=== PATIENT | female | born 1985 | race American Indian/Alaskan Native ===

== ENCOUNTER 2023-12-24 14:53 | Emergency (ER) | payer OTHER ==
[~2023-12-24] VITALS: Ht 165.1 cm; Wt 102.7 kg
[2023-12-24] MEDS ORDERED: CEFTRIAXONE/SODIUM CHLORIDE 2 GM/100 ML PIGGYBACK IV ONE (15:15)
[2023-12-24] MEDS ORDERED: SODIUM CHLORIDE 0.9% 1,000 ML IV ONE ×2 (15:15→15:45)
[2023-12-24 15:22] LABS: BASOPHILS 0.8 % (0-2); EOSINOPHILS 0.2 % (0-6); HEMATOCRIT 31.6 % (35.0-50.0); HEMOGLOBIN 10.1 g/dL (12.0-18.0); MCH 26.2 (27-36); MCHC 31.9 g/dl (30-36); MONOCYTES 2.1 % (0-12); NEUTROPHILS 90.9 % (39-80); PLATELET COUNT 399 K/uL (140-440); RBC 3.85 M/ul (4.3-5.7); RDW 15.9 (10.5-15.0)
[2023-12-24 15:22] LABS: BILIRUBIN, URINE POSITIVE (negative); BLOOD/HGB, URINE NEGATIVE (Negative); KETONE, URINE TRACE (Negative); LEUK ESTERASE, URINE NEGATIVE (negative); NITRITE, URINE NEGATIVE (negative)
[2023-12-24 15:28] LABS: CASTS, URINE NONE SEEN \\lpf; CRYSTALS, URINE NONE SEEN (0-1+); EPITHELIAL CELLS, URINE SQUAMOUS 2+ /lpf (0-1+)
[2023-12-24 15:29] LABS: BACTERIA, URINE 1+ /hpf (negative); COLLECTION TYPE, URINE CLEAN CATCH; RED BLOOD CELLS, URINE 0-1 /hpf (0-5); REFLEX CULTURE, URINE No (No)
[2023-12-24] MEDS ORDERED: AMOX TR-K CLV1 EAC1 PO (15:32)
[2023-12-24] MEDS ORDERED: DOXYCYCLINE HY100 MG PO (15:32)
[2023-12-24] MEDS ORDERED: BIKTARVY 50-201 EACH PO (15:35)
[2023-12-24 15:38] LABS: ALBUMIN 2.1 g/dL (3.4-5.0); ALBUMIN/GLOBULIN RATIO 0.43 (1.1-2.4); BILIRUBIN, TOTAL 0.5 ng/dL (0.2-1.0); BUN/CREATININE RATIO 15.15 (6.0-28.6); CALCIUM 9.5 mg/dL (8.5-10.1); CREATININE, SERUM 0.99 mg/dL (0.55-1.02)
[2023-12-24 15:42] LABS: LACTIC ACID, BLOOD 4.4 mmol/L (0.4-2.0)
[2023-12-24 15:55] LABS: INFLUENZA B NAA NEGATIVE (NEGATIVE); RESPIRATORY SYNCYTIAL VIR NAA POSITIVE (NEGATIVE)
--- OUTSIDE RECORDS SUMMARY | 2023-12-24 16:03 | XMS ---
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 - 2 Visits in 30 Days CARE PROVIDERS -, [facility] Dentist: Estimating Manager [facility] PHONE: [phone] - [place]- Dentist: Estimating Manager [facility] PHONE: [phone] [facility] ([facility]) PHONE: [phone] JAY PEREZ Physician Information Systems Coordinator Current PHONE: [phone] [place] has no Care Guidelines for this patient. [place] VISIT COUNT (12 MO.) 1 [facility] TOTAL 2 NOTE: Visits indicate total known visits. ED/UCC VISIT TRACKING (12 MO.) 12/24/2023 14:53 ENRIQUE Humphrey [place] TYPE: Emergency COMPLAINT: - FEVER 12/09/2023 19:57 [facility] DIAGNOSES: - Pleurisy - Viral infection, unspecified - Shortness of Breath - SOB INPATIENT VISIT TRACKING (12 MO.) No inpatient visits to display in this time frame [email or web address]
[2023-12-24] MEDS ORDERED: predniSONE 20 MG TAB PO ONE ×2 (16:45→17:30)
[2023-12-24 16:53] LABS: LACTIC ACID, BLOOD 2.5 mmol/L (0.4-2.0)
[2023-12-24 20:30] VITALS: BP 114/64
== END 2023-12-24 20:30 | disposition short-term general hospital (02) ==
LOC: ED 14:53
PROVIDERS: Emergency Medicine
DX: J18.9 Pneumonia, unspecified organism (principal); A41.9 Sepsis, unspecified organism; B20 Human immunodeficiency virus [HIV] disease; Z79.899 Other long term (current) drug therapy; Z11.52 Encounter for screening for COVID-19
CPT/HCPCS: 36415; 71045; 80053; 81001; 83605; 85025; 87502; J0696; J7030; J7060; J7512; U0002

== ENCOUNTER 2025-03-07 14:16 | Emergency (ER) | payer OTHER ==
[~2025-03-07] VITALS: Ht 165.1 cm; Wt 99.0 kg
[~2025-03-07 14:16] MED LIST: AMOX TR-K CLV1 EAC1 PO; BIKTARVY 50-201 EACH PO; DOXYCYCLINE HY100 MG PO
[2025-03-07] MEDS ORDERED: SULFAMETHOXAZO1 EAC1 PO (14:38)
[2025-03-07 14:44] LABS: BASOPHILS 0.2 % (0.1-1.2); EOSINOPHILS 0.3 % (0.7-5.8); LYMPHOCYTES 11.3 % (19.3-51.7); MCH 29.6 PG (25.6-32.2); MCHC 33.5 g/dL (32.2-35.5); MCV 88.5 fL (79.4-94.8); MONOCYTES 6.2 % (4.7-12.5); NEUTROPHILS 81.5 % (34.0-71.1); RBC 4.69 M/uL (3.93-5.22)
[2025-03-07] MEDS ORDERED: SODIUM CHLORIDE 0.9% 2,000 ML IV PRN (14:45)
[2025-03-07] MEDS ORDERED: ACETAMINOPHEN 500 MG TAB PO ONE (14:45)
[2025-03-07 14:57] LABS: CORONAVIRUS COVID-19 AG NEGATIVE (NEGATIVE)
[2025-03-07 14:57] LABS: INR 1.07 (0.80-1.30); PROTIME 13.2 Sec (11.2-14.2)
[2025-03-07 15:01] LABS: ALT (SGPT) 33.0 U/L (14-59); AST (SGOT) 27.0 U/L (15-37); GLOMERULAR FILTRATION RATE,EST 100.0 mL/min (>60); PROTEIN, TOTAL 8.9 g/dL (6.4-8.2); UREA NITROGEN 15.0 mg/dL (7-18)
[2025-03-07 15:05] LABS: LACTIC ACID, BLOOD 1.6 mmol/L (0.4-2.0)
[2025-03-07] MEDS ORDERED: AZITHROMYCIN 500 MG in DEXTROSE 5% 250 ML IV ONE (15:30)
[2025-03-07] MEDS ORDERED: ZITHROMAX250 MG PO (17:11)
[2025-03-07] MEDS ORDERED: CEFDINIR300 MG PO (17:11)
[2025-03-07 17:49] VITALS: BP 128/58
== END 2025-03-07 17:51 | disposition home or self-care (01) ==
LOC: ED 14:16
PROVIDERS: Emergency Medicine
DX: J18.9 Pneumonia, unspecified organism (principal); Z21 Asymptomatic human immunodeficiency virus [HIV] infection status; Z88.0 Allergy status to penicillin; Z79.899 Other long term (current) drug therapy
CPT/HCPCS: 36415; 71045; 71260; 80053; 83605; 84703; 85025; 85379; 85610; 85730; 87040; 87502; 96365; 96366; 96367; 99285-25; A9270; J0456; J0696; J7060; Q9967; U0002